=== PATIENT | male | born 1975 | race Caucasian/White ===

== ENCOUNTER 2017-08-13 17:35 | Emergency (ER) | payer OTHER, BC ==
[2017-08-13 18:29] VITALS: BP 119/68
[2017-08-13] MEDS ORDERED: Albuterol/Ipratropium 3.0-0.5 MG/3 ML Neb Soln NEB ONE (19:04)
--- NOTE | 2017-08-13 19:09 | EDM.PDOC ---
ED HPI GENERAL MEDICAL PROBLEM - General Chief Complaint: Respiratory Problem Stated Complaint: PT HAS COUGH Time Seen by Provider: 08/13/17 18:59 - History of Present Illness INITIAL COMMENTS - FREE TEXT/NARRATIVE: HISTORY AND PHYSICAL: History of present illness: The patient is a 41-year-old male with no pulmonary history who presents with eye days of hacking cough body aches subjective fevers sore throat and is concerned because his girlfriend was diagnosed with influenza A. The patient denies shortness of breath or chest pain no abdominal pain vomiting or diarrhea. The patient doesn't have any head or neck pain and works at a local [employer] and feels that he has been exposed to a lot of people who are ill. The patient is not a smoker Review of systems: As per history of present illness and below otherwise all systems reviewed and negative. Past medical history: As per history of present illness and as reviewed below otherwise noncontributory. Surgical history: As per history of present illness and as reviewed below otherwise noncontributory. Social history: No reported history of drug or alcohol abuse. Family history: As per history of present illness and as reviewed below otherwise noncontributory. Physical exam: General: Well-developed overweight male who is nontoxic and has a hacking loose cough in the ED on my evaluation. Vital signs been reviewed by me. HEENT: Atraumatic, normocephalic, pupils reactive, negative for conjunctival pallor or scleral icterus, mucous membranes moist, throat clear, neck supple, nontender, trachea midline. Oropharynx does not have exudates but there is erythema but there is no cervical adenopathy or nuchal rigidity Lungs: Clear to auscultation, breath sounds equal bilaterally, chest nontender. There is no work of breathing wheezing or stridor but there are occasional coarse breath sounds bilaterally Heart: S1S2, regular rate and rhythm no overt murmurs. Abdomen: Soft, nondistended, nontender. NABS Pelvis: Deferred. Genitourinary: Deferred. Rectal: Deferred. Extremities: Atraumatic, negative for cords or calf pain. Neurovascular unremarkable. Neuro: Awake, alert, oriented. Cranial nerves II through XII unremarkable. Cerebellum unremarkable. Motor and sensory unremarkable throughout. Exam nonfocal. Diagnostics: Influenza rapid strep chest x-ray Therapeutics: Duo neb spacer and spacer teaching Impression: Acute bronchitis Definitive disposition and diagnosis as appropriate pending reevaluation and review of above. throat Pain Score (Numeric/FACES): 4 - Related Data Allergies Allergy/AdvReac Type Severity Reaction Status Date / Time celecoxib [From Celebrex] Allergy Hives Verified 08/13/17 17:54 ciprofloxacin Allergy Hives Verified 08/13/17 17:54 Home Meds: Home Meds Dextroamphetamine Sulfate [Dexedrine] 10 mg PO BID 02/14/17 [History] Prednisone [IJD: predniSONE] 20 mg PO DAILY 08/13/17 [History] Past Medical History Musculoskeletal History: Reports: Osteoarthritis Psychiatric History: Reports: ADHD - Infectious Disease History Infectious Disease History: Reports: None - Past Surgical History HEENT Surgical History: Reports: Oral Surgery Musculoskeletal Surgical History: Reports: Shoulder Surgery Social & Family History - Family History Family Medical History: Noncontributory - Tobacco Use Smoking Status *Q: Never Smoker Years of Tobacco use: 20 Packs/Tins Daily: 0.4 Used Tobacco, but Quit: No - Caffeine Use Caffeine Use: Reports: Coffee, Energy Drinks - Alcohol Use Days Per Week of Alcohol Use: 7 Number of Drinks Per Day: 2 Total Drinks Per Week: 14 - Recreational Drug Use Recreational Drug Use: No - Living Situation & Occupation Living situation: Reports: , with Spouse 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 ED EXAM, GENERAL - Physical Exam Exam: See Below (See dictation) Course - Vital Signs Last Recorded V/S: Last Vital Signs Temp 36.9 C 08/13/17 18:26 Pulse 79 08/13/17 18:26 Resp 18 08/13/17 18:26 BP 119/68 08/13/17 18:26 Pulse Ox 93 L 08/13/17 18:26 - Orders/Labs/Meds Orders: Active Orders 24 hr Category Date Time Status Communication Order [RC] STAT Care 08/13/17 19:04 Active RT Aerosol Therapy [RC] ASDIRECTED Care 08/13/17 19:04 Active Chest 2V [CR] Stat Exams 08/13/17 19:04 Taken CULTURE STREP A CONFIRMATION [RM] Stat Lab 08/13/17 19:23 Results STREP SCRN A RAPID W CULT CONF [RM] Stat Lab 08/13/17 19:23 Ordered Meds: Medications Discontinued Medications Generic Name Dose Route Start Last Admin Trade Name Petra PRN Reason Stop Dose Admin Albuterol/Ipratropium 3 ml 08/13/17 19:04 08/13/17 19:45 Duoneb 3.0-0.5 Mg/3 Ml NEB 08/13/17 19:05 3 ml ONETIME ONE Administration Departure - Departure Time of Disposition: 19:56 Disposition: Home, Self-Care 01 Condition: Good Clinical Impression: Acute bronchitis Qualifiers: Bronchitis organism: unspecified organism Qualified Code(s): J20.9 - Acute bronchitis, unspecified - Discharge Information Referrals: PCP,None [Primary Care Provider] - Forms: ED Department Discharge Additional Instructions: The following information is given to patients seen in the emergency department who are being discharged to home. This information is to outline your options for follow-up care. We provide all patients seen in our emergency department with a follow-up referral. The need for follow-up, as well as the timing and circumstances, are variable depending upon the specifics of your emergency department visit. If you don't have a primary care physician on staff, we will provide you with a referral. We always advise you to contact your personal physician following an emergency department visit to inform them of the circumstance of the visit and for follow-up with them and/or the need for any referrals to a consulting specialist. The emergency department will also refer you to a specialist when appropriate. This referral assures that you have the opportunity for followup care with a specialist. All of these measure are taken in an effort to provide you with optimal care, which includes your followup. Under all circumstances we always encourage you to contact your private physician who remains a resource for coordinating your care. When calling for followup care, please make the office aware that this follow-up is from your recent emergency room visit. If for any reason you are refused follow-up, please contact the [facility] emergency department at and ask to speak to the emergency department charge nurse. [facility] Primary care- Internal Medicine and Family [address] [address] Please push hydration and try to avoid caffeinated products and use over-the- counter meds as he chews. Please use the inhaler you have been given with a spacer every 6 hours as well as take Medrol Dosepak as prescribed. Please call and follow-up with one of our clinic provider is in next few days for reevaluation further care and return to ER as needed as discussed. - My Orders Last 24 Hours: My Active Orders 08/13/17 19:04 Communication Order [RC] STAT RT Aerosol Therapy [RC] ASDIRECTED Chest 2V [CR] Stat 08/13/17 19:23 CULTURE STREP A CONFIRMATION [RM] Stat STREP SCRN A RAPID W CULT CONF [RM] Stat - Assessment/Plan Last 24 Hours: My Active Orders 08/13/17 19:04 Communication Order [RC] STAT RT Aerosol Therapy [RC] ASDIRECTED Chest 2V [CR] Stat 08/13/17 19:23 CULTURE STREP A CONFIRMATION [RM] Stat STREP SCRN A RAPID W CULT CONF [RM] Stat
--- NOTE | 2017-08-14 09:43 | CR ---
EXAM DATE: 08/13/17 PATIENT'S AGE: 41 Patient: ASHLEY JEFFERS Facility: [place], [place] Site . Site : [id number] Study: XRay Chest [id number]/4/2018 7:29:10 PM Ordering Physician: Jennifer Lewis Final Report: INDICATION: PAIN, SOB TECHNIQUE: Chest 2 views. COMPARISON: None. FINDINGS: Cardiovascular and mediastinum: Heart size and vasculature are normal in caliber and appearance. Mediastinum is within normal limits. Lungs and pleural spaces: Lungs are clear. No sign of infiltrate or mass. No sign of pleural effusion. No pneumothorax. Bones and soft tissues: No significant findings. IMPRESSION: Unremarkable chest. Dictated by: Avelino Stuart MD @ 08/13/2017 19:39:18 (Electronic Signature) Report Signed by Proxy. [facility]ALK[facility]en
== END 2017-08-13 20:04 | disposition home or self-care (01) ==
LOC: MW.ED 17:35
DX: J20.9 Acute bronchitis, unspecified (principal); Z88.1 Allergy status to other antibiotic agents; Z88.8 Allergy status to other drugs, medicaments and biological substances; Z79.899 Other long term (current) drug therapy
CPT/HCPCS: 71046; 71046-26; 87081; 87804; 87880; 94640; 99283; 99283-25